=== PATIENT | female | born 1955 | race Caucasian/White ===

== ENCOUNTER 2016-12-24 01:15 | Inpatient (IN) | payer BC ==
[2016-12-24 01:37] LABS: Glucose,Whole Blood 92 mg/dL (75-99)
[2016-12-24] MEDS ORDERED: LORazepam 1 MG TAB PO STA (01:43)
--- NOTE | 2016-12-24 01:47 | ED ---
General Adult HPI - General Chief complaint: Neuro Symptoms/Deficit Stated complaint: Numbness in hands,feet,arms,lips Time Seen by Provider: 12/24/16 01:24 Source: patient, family, RN notes reviewed Mode of arrival: wheelchair Limitations: no limitations - History of Present Illness Initial comments: Patient is a pleasant 61-year-old female presenting to the emergency Department with paresthesias and weakness. Onset of symptoms was 2 days ago. Symptoms started in the feet however now are also in the hands. Patient is able to feel however states it feels different. Patient does feel weak all over. Patient states he is only able to walk about 5 steps before she is too weak to carry on. Patient did have recent cold symptoms that have resolved. Patient found her neighbor approximately one week ago. Patient admits to increased stress and anxiety regarding this. Patient also admits to not eating or drinking well since this time. Patient does question if she could be dehydrated. - Related Data Home Medications Medication Instructions Recorded Confirmed Unable To Assess [Unable to Assess] 12/24/16 12/24/16 Allergies Allergy/AdvReac Type Severity Reaction Status Date / Time Penicillins Allergy Unknown Verified 12/24/16 01:23 Childhood Review of Systems ROS Statement: Those systems with pertinent positive or pertinent negative responses have been documented in the HPI. ROS Other: All systems not noted in ROS Statement are negative. Constitutional: Denies: fever Eyes: Denies: eye pain ENT: Denies: ear pain, congestion (Resolved) Respiratory: Denies: cough (Resolved) Cardiovascular: Denies: chest pain Endocrine: Denies: fatigue Gastrointestinal: Denies: abdominal pain Genitourinary: Denies: dysuria Musculoskeletal: Denies: joint swelling, arthralgia, myalgia Skin: Denies: rash Neurological: Reports: weakness, paresthesias. Denies: headache, confusion Psychiatric: Reports: anxiety Past Medical History Past Medical History: No Reported History History of Any Multi-Drug Resistant Organisms: None Reported Past Surgical History: Tubal Ligation Past Psychological History: No Psychological Hx Reported Smoking Status: Never smoker Past Alcohol Use History: Rare Past Drug Use History: None Reported General Exam Limitations: no limitations General appearance: alert, in no apparent distress Head exam: Present: atraumatic Eye exam: Present: normal appearance, PERRL, EOMI. Absent: nystagmus ENT exam: Present: normal oropharynx Neck exam: Present: normal inspection Respiratory exam: Present: normal lung sounds bilaterally Cardiovascular Exam: Present: regular rate, normal rhythm GI/Abdominal exam: Present: soft. Absent: tenderness Extremities exam: Present: normal inspection. Absent: pedal edema, calf tenderness Neurological exam: Present: alert, oriented X3, CN II-XII intact Expanded Patient oriented to: Present: person, place, time Speech: Present: fluid speech Cranial nerves: EOM's Intact: Normal, Facial Sensation: Normal Sensory exam: Upper Extremity Light Touch: Normal (Patient states is able to sense however feels different), Lower Extremity Light Touch: Normal (Patient states is able to sense however feels different.) Motor strength exam: RUE: 4, LUE: 4, RLE: 4, LLE: 4 Eye Response: (4) open spontaneously Motor Response: (6) obeys commands Verbal Response: (5) oriented Psychiatric exam: Present: anxious Skin exam: Absent: rash Course Vital Signs 12/24/16 12/24/16 12/24/16 01:20 03:05 03:48 Temperature 98.0 F Pulse Rate 88 83 76 Respiratory 18 16 16 Rate Blood Pressure 146/78 155/87 146/65 O2 Sat by Pulse 100 97 97 Oximetry EKG Findings - EKG Comments: EKG Findings:: Normal sinus rhythm at 82. Normal intervals. Normal axis. Normal QRS. Nonspecific ST-T. Medical Decision Making - Medical Decision Making Patient with limited ability to ambulate. Case discussed in detail with Dr. Castro, who will admit for Dr. cage with neurology evaluation. Patient will likely need further evaluation for possible GuilliAN chanel or other neurological causes. Patient and family updated. - Lab Data Result diagrams: 12/24/16 01:40 12/24/16 01:40 Lab Results 12/24/16 12/24/16 12/24/16 Range/Units 01:33 01:40 01:40 WBC 8.4 (3.8-10.6) k/uL RBC 4.71 (3.80-5.40) m/uL Hgb 14.4 (11.4-16.0) gm/dL Hct 43.5 (34.0-46.0) % MCV 92.5 (80.0-100.0) fL MCH 30.6 (25.0-35.0) pg MCHC 33.1 (31.0-37.0) g/dL RDW 13.0 (11.5-15.5) % Plt Count 243 (150-450) k/uL Neutrophils % 77 % Lymphocytes % 15 % Monocytes % 5 % Eosinophils % 1 % Basophils % 1 % Neutrophils # 6.4 (1.3-7.7) k/uL Lymphocytes # 1.2 (1.0-4.8) k/uL Monocytes # 0.4 (0-1.0) k/uL Eosinophils # 0.1 (0-0.7) k/uL Basophils # 0.1 (0-0.2) k/uL PT (9.0-12.0) sec INR (<1.1) APTT (22.0-30.0) sec Sodium (137-145) mmol/L Potassium (3.5-5.1) mmol/L Chloride (98-107) mmol/L Carbon Dioxide (22-30) mmol/L Anion Gap mmol/L BUN (7-17) mg/dL Creatinine (0.52-1.04) mg/dL Est GFR (MDRD) Af Amer (>60 ml/min/1.73 sqM) Est GFR (MDRD) Non-Af (>60 ml/min/1.73 sqM) Glucose (74-99) mg/dL POC Glucose (mg/dL) 92 (75-99) mg/dL POC Glu Shipping Team Leader ID Marcelo Wilkins Calcium (8.4-10.2) mg/dL Magnesium (1.6-2.3) mg/dL Total Bilirubin (0.2-1.3) mg/dL AST (14-36) U/L ALT (9-52) U/L Alkaline Phosphatase (38-126) U/L Total Creatine Kinase 191 H (30-135) U/L CK-MB (CK-2) 2.0 (0.0-2.4) ng/mL CK-MB (CK-2) Rel Index 1.0 Troponin I <0.012 (0.000-0.034) ng/mL C-Reactive Protein (<10.0) mg/L Total Protein (6.3-8.2) g/dL Albumin (3.5-5.0) g/dL 12/24/16 12/24/16 Range/Units 01:40 01:40 WBC (3.8-10.6) k/uL RBC (3.80-5.40) m/uL Hgb (11.4-16.0) gm/dL Hct (34.0-46.0) % MCV (80.0-100.0) fL MCH (25.0-35.0) pg MCHC (31.0-37.0) g/dL RDW (11.5-15.5) % Plt Count (150-450) k/uL Neutrophils % % Lymphocytes % % Monocytes % % Eosinophils % % Basophils % % Neutrophils # (1.3-7.7) k/uL Lymphocytes # (1.0-4.8) k/uL Monocytes # (0-1.0) k/uL Eosinophils # (0-0.7) k/uL Basophils # (0-0.2) k/uL PT 10.8 (9.0-12.0) sec INR 1.1 (<1.1) APTT 22.3 (22.0-30.0) sec Sodium 141 (137-145) mmol/L Potassium 4.4 (3.5-5.1) mmol/L Chloride 105 (98-107) mmol/L Carbon Dioxide 26 (22-30) mmol/L Anion Gap 10 mmol/L BUN 13 (7-17) mg/dL Creatinine 0.50 L (0.52-1.04) mg/dL Est GFR (MDRD) Af Amer >60 (>60 ml/min/1.73 sqM) Est GFR (MDRD) Non-Af >60 (>60 ml/min/1.73 sqM) Glucose 111 H (74-99) mg/dL POC Glucose (mg/dL) (75-99) mg/dL POC Glu Shipping Team Leader ID Calcium 9.8 (8.4-10.2) mg/dL Magnesium 1.8 (1.6-2.3) mg/dL Total Bilirubin 0.6 (0.2-1.3) mg/dL AST 40 H (14-36) U/L ALT 47 (9-52) U/L Alkaline Phosphatase 51 (38-126) U/L Total Creatine Kinase (30-135) U/L CK-MB (CK-2) (0.0-2.4) ng/mL CK-MB (CK-2) Rel Index Troponin I (0.000-0.034) ng/mL C-Reactive Protein 6.6 (<10.0) mg/L Total Protein 7.9 (6.3-8.2) g/dL Albumin 4.5 (3.5-5.0) g/dL - Radiology Data Radiology results: report reviewed (Computed tomography scan of the brain shows no acute process.), image reviewed (Chest x-ray shows no acute process) Disposition Clinical Impression: Weakness Disposition: ADMITTED IP TO THIS HOSP
[2016-12-24] MEDS: SODIUM CHLORIDE 0.9% 1,000 ML IV STA ×2 (01:56→08:59)
[2016-12-24 01:58] LABS: Basophils # (A) 0.1 k/uL (0-0.2); Basophils % (A) 1 %; CH 31.2; CHCM 33.9; Eosinophils # (A) 0.1 k/uL (0-0.7); Eosinophils % (A) 1 %; HCT 43.5 % (34.0-46.0); HDW 2.27; HGB 14.4 gm/dL (11.4-16.0); Luc # (Auto) 0.23; Luc % (Auto) 3; Lymphocytes # (A) 1.2 k/uL (1.0-4.8); Lymphocytes % (A) 15 %; MCH 30.6 pg (25.0-35.0); MCHC 33.1 g/dL (31.0-37.0); MCV 92.5 fL (80.0-100.0); Mean Platelet Volume 7.9; Monocytes # (A) 0.4 k/uL (0-1.0); Monocytes % (A) 5 %; Neutrophils # (A) 6.4 k/uL (1.3-7.7); Neutrophils % (A) 77 %; RBC 4.71 m/uL (3.80-5.40); WBC 8.4 k/uL (3.8-10.6); WBC (Perox) 8.28
[2016-12-24 02:10] LABS: Anion Gap 10 mmol/L; C Reactive Protein 6.6 mg/L (<10.0); Calcium 9.8 mg/dL (8.4-10.2); Carbon Dioxide 26 mmol/L (22-30); Chloride 105 mmol/L (98-107); Glucose 111 mg/dL (74-99); Non-African American GFR(MDRD) >60 (>60 ml/min/1.73 sqM); Sodium 141 mmol/L (137-145); Total Bilirubin 0.6 mg/dL (0.2-1.3); Total Protein 7.9 g/dL (6.3-8.2)
[2016-12-24 02:14] LABS: INR 1.1 (<1.1); Partial Thromboplastin Time 22.3 sec (22.0-30.0); Prothrombin Time 10.8 sec (9.0-12.0)
[2016-12-24 02:15] LABS: Blood Urea Nitrogen 13 mg/dL (7-17); Magnesium 1.8 mg/dL (1.6-2.3); Potassium 4.4 mmol/L (3.5-5.1)
[2016-12-24 02:16] LABS: ALT 47 U/L (9-52); AST 40 U/L (14-36); Alkaline Phosphatase 51 U/L (38-126)
[2016-12-24 02:21] LABS: Creatine Kinase 191 U/L (30-135)
[2016-12-24 02:33] LABS: Troponin I <0.012 ng/mL (0.000-0.034)
--- NOTE | 2016-12-24 02:48 | CT ---
EXAM: CT Head Without Intravenous Contrast. CLINICAL HISTORY: Reason: Neuro Deficits TECHNIQUE: Axial computed tomography images of the head/brain without intravenous contrast. CTDI is 60.3 mGy and DLP is 1199.0 mGy-cm COMPARISON: No relevant prior studies available. FINDINGS: Brain: No evidence of acute cerebral infarction or hemorrhage. No abnormal extra-axial collections identified. Ventricles: Ventricles are of normal configuration without mass effect or midline shift. Bones/joints: Imaged sinuses are clear. No skull fracture identified. Soft tissues: Unremarkable. Sinuses: Unremarkable as visualized. No acute sinusitis. Mastoid air cells: Unremarkable as visualized. No mastoid effusion. Other findings: There are some scattered basal ganglion Stations bilaterally. IMPRESSION: No evidence of acute intracranial normality.
--- NOTE | 2016-12-24 02:52 | XR ---
EXAM: XR Chest, 2 Views. CLINICAL HISTORY: Reason: altered mental status TECHNIQUE: Frontal and lateral views of the chest. COMPARISON: None available FINDINGS: Lungs: Lungs are clear Pleural space: Unremarkable. No pneumothorax. Heart: Unremarkable. No cardiomegaly. Mediastinum: Unremarkable. Bones/joints: Unremarkable. IMPRESSION: No evidence of active chest disease.
[2016-12-24 03:08] VITALS: RESP 16
[2016-12-24 04:08] LABS: Appearance,Urine Clear (Clear); Bilirubin,Urine Negative (Negative); Glucose,Urine (UA) Negative (Negative); Ketones,Urine 1+ (Negative); Leukocyte Esterase,Urine Small (Negative); Mucus,Urine Moderate /hpf; Nitrite,Urine Negative (Negative); PH, Urine 5.5 (5.0-8.0); Particle Count 7424; Protein,Urine Trace (Negative); RBC,Urine 2 /hpf (0-5); Specific Gravity,Urine 1.016 (1.001-1.035); Squamous Epithelial Cell,Urine <1 /hpf (0-4); UA Billing (MACRO vs. MICRO) MICRO; Urobilinogen,Urine <2.0 mg/dL (<2.0); WBC,Urine 11 /hpf (0-5)
[2016-12-24] MEDS ORDERED: NALOXONE 0.4 MG/ML 1 ML VIAL IV PRN (04:09)
[2016-12-24] MEDS ORDERED: ALPRAZolam 0.25 MG TAB PO PRN (04:09)
[2016-12-24] MEDS ORDERED: SODIUM CHLORIDE 0.9% 1,000 ML IV SCH (04:15)
[2016-12-24 05:15] VITALS: BMI 26.1
[2016-12-24 05:41] VITALS: TEMP 98.4
[2016-12-24 10:06] VITALS: BP 156/75; PULSE 94
[2016-12-24] MEDS ORDERED: LORazepam 2 MG/ML SYRINGE IV STA (10:35)
--- NOTE | 2016-12-24 11:53 | MR ---
MRI CERVICAL SPINE: MRI THORACIC SPINE: CLINICAL HISTORY: Sudden onset neck pain and numbness in hands and feet. TECHNIQUE: Multiplanar, multisequence imaging of the cervical and thoracic spine are performed withou t IV contrast. COMPARISON: None. FINDINGS: C-SPINE: Sagittal images of the cervical spine show the craniocervical junction to appear within normal limits . The cervical and upper thoracic spinal cord is normal in course, caliber, and signal. Vertebral a lignment is anatomic. The vertebral body heights are normal. There is mild disc space narrowing C5-C 6 level otherwise disc space heights are fairly well-maintained. No large posterior disc herniations are seen on sagittal images. The bone marrow signal intensity is felt within normal limits. No signi ficant spurring is noted. Axial images show the C2-C3 and C3-C4 levels to appear within normal limits. Axial images at the C4-C5 level show uncovertebral facet degenerative changes bilaterally as well as left paracentral/foraminal spur disc complex, there is mild effacement of the anterolateral thecal sa c, there is moderate bilateral neural foraminal narrowing at this level identified. Axial images at C5-C6 level show uncovertebral facet degenerative changes bilaterally with broad-base d left paracentral disc protrusion effacing the anterior thecal sac, there is asymmetric moderate to severe left-sided neural foraminal narrowing with mild right-sided neural foraminal narrowing noted. Axial images at C6-C7 level are degraded by artifact but show central disc protrusion effacing anteri or thecal sac nearly up to ventral surface of spinal cord on axial image 25, bilateral neural foramin a are felt patent. Axial images at C7-T1 level are felt within normal limits. IMPRESSION: Multilevel degenerative changes in the mid to lower cervical spine as detailed above. T-SPINE: FINDINGS: Spinal cord shows normal course and signal as it courses the thoracic spine. There is AP diameter narrowing with suggestion of anterior effacement at the T5-T6 level on sagittal image 7, foc al arachnoid cyst at this level needs to BE considered. Length of lesion is estimated 1.8 cm beginnin g at inferior T5 endplate extending almost to inferior T6 endplate. No abnormal signal or cord edema is definitively seen. Vertebral body heights and alignment are satisfactory. There is mild to modera te multilevel anterior spurring. There is mild multilevel disc space narrowing. Posterior disc hernia tions are seen effacing anterior thecal sac at T1-T2, T5-T6 through T10-T11 levels on sagittal images . Note is made of a 1.9 cm round T1 low intense lesion in the liver on coronal image 2 suspect simple cyst. Review of the axial images shows less well visualized but anterior cord displacement centered at T5-T 6 disc space level on image 5. No obvious cord edema is seen. Axial images at T1-T2 level shows broad-based central disc protrusion mildly effacing anterior thecal sac on axial image 18. Axial images at T5-T6 level shows focal right paracentral disc protrusion mildly effacing anterior th ecal sac on axial image 6. Axial images at T6-T7 level show left paracentral disc protrusion effacing anterolateral thecal sac a nd axial image 3. Axial images at T7-T8 level show similar left paracentral disc protrusion mildly effacing anterolater al thecal sac. Axial images at T8-T9 level shows central disc protrusion mildly effacing anterior thecal sac on imag e 14. Axial images at T9-T10 level show left paracentral disc protrusion effacing anterolateral thecal sac and axial image 12. Axial images at and T10-T11 level shows left broad-based paracentral disc protrusion effacing anterol ateral thecal sac and causing mild to moderate left-sided neural foraminal narrowing on axial image 8 . There is 2.0 cm simple appearing thin-walled cyst confirmed posterior right hepatic lobe on axial raffi ge 6. IMPRESSION: Multilevel degenerative changes in thoracic spine as detailed above most prominent in mid to lower thoracic levels. 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 No cord edema is clearly evident. Neurosurgical consultation advised. Consider f urther investigation with contrast-enhanced MRI to exclude other etiologies.
--- NOTE | 2016-12-24 14:22 | P.HPIM ---
History of Present Illness H&P Date: 12/24/16 Chief Complaint: Bilateral upper and lower extremities weakness History and physical and discharge summary. This is a 61-year-old female one of Dr. Up with no previous medical history who presented to the emergency department at [facility] after 48 hours of sudden onset of the upper and lower extremities weakness and significant procedure not able to move her arm to scratch her face despite the fact that she is not having any mental status changes or any headache was no confusion, patient stated that about a week ago she developed to have an upper respiratory tract infection and she thought that she had the flu at that time. She treated it conservatively without going to the doctor and the suddenly she developed to have the symptoms described above. Patient stated that on Thursday she was painting and cleaning the house she worked extra hard and toward 3:00 in the afternoon developed to have a significant weakness in upper and lower extra views and also developed to have some pain in the right side of her neck patient was brought into the ER at [facility] and she had a computed tomography scan of the brain that did not show any evidence of acute of normalities, she also did have a chest x-ray that was negative her laboratory evaluation were inconclusive and the patient was supposed to be seen in consultation by neurology the concern was whether or not the patient developed to have significant 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 I had a conversation with the patient and her and they're both interested in transferring the patient to a tertiary care center either [facility] versus [facility] I've contacted [facility] and patient was accepted to the neurology floor or general medical floor and she will be transferred as soon as possible for further evaluation and recommendation. Review of Systems Constitutional: Reports fatigue, Reports malaise, Reports weakness, Denies chronic headaches, Denies chronic pain, Denies weight gain, Denies weight loss Eyes: denies blurred vision, denies bulging eye, denies decreased vision, denies diplopia Ears: deny: decreased hearing Ears, nose, mouth and throat: Denies dysphagia, Denies epistaxis, Denies neck lump, Denies nose pain, Denies sore throat, Denies vertigo Cardiovascular: Denies chest pain, Denies decreased exercise tolerance, Denies dyspnea on exertion, Denies edema, Denies high blood pressure, Denies phlebitis , Denies rapid heart beat, Denies shortness of breath, Denies syncope Respiratory: Denies congestion, Denies cough, Denies cough with sputum, Denies home oxygen, Denies sleep apnea, Denies snoring, Denies wheezing Gastrointestinal: Denies abdominal pain, Denies bloating, Denies BRBPR, Denies excessive gas, Denies heartburn, Denies melena, Denies nausea, Denies vomiting Genitourinary: Denies dysuria, Denies hematuria Musculoskeletal: Reports gait dysfunction, Reports leg numbness/tingling, Reports muscle weakness, Reports neck pain, Reports neck stiffness, Denies myalgias Musculoskeletal: absent: ankle pain, ankle stiffness, ankle swelling, as per HPI , elbow pain, elbow stiffness, elbow swelling, foot pain, foot stiffness, foot swelling, hand pain, hand stiffness, hand swelling, hip pain, hip stiffness, hip swelling, knee pain, knee stiffness, knee swelling, shoulder pain, shoulder stiffness, shoulder swelling, wrist pain, wrist stiffness, wrist swelling Integumentary: Denies pruritus, Denies rash Neurological: Reports gait dysfunction, Reports lack of coordination, Reports motor disturbance, Reports paralysis, Reports paresthesias, Reports sensory deficit, Reports weakness, Denies burning pain, Denies change in mentation, Denies change in speech, Denies confusion, Denies convulsions, Denies double vision, Denies headaches, Denies hearing difficulties, Denies spasticity, Denies syncope, Denies visual changes Psychiatric: Reports anxiety, Denies depression Endocrine: Reports as per HPI Past Medical History Past Medical History: No Reported History History of Any Multi-Drug Resistant Organisms: None Reported Past Surgical History: Tubal Ligation Past Anesthesia/Blood Transfusion Reactions: Postoperative Nausea & Vomiting ( PONV) Past Psychological History: No Psychological Hx Reported Smoking Status: Never smoker Past Alcohol Use History: Rare Past Drug Use History: None Reported - Past Family History Father Family Medical History: Coronary Artery Disease (CAD), CVA/TIA Additional Family Medical History / Comment(s): pt states her father of stroke. Mother Additional Family Medical History / Comment(s): glaucoma. Brother(s) Family Medical History: AFIB Medications and Allergies Home Medications Medication Instructions Recorded Confirmed Type Ascorbic Acid [Vitamin C] 1,000 mg PO BID 12/24/16 12/24/16 History Lactobacillus Acidophilus 1 tab PO BID 12/24/16 12/24/16 History [Acidophilus] Allergies Allergy/AdvReac Type Severity Reaction Status Date / Time Penicillins Allergy Unknown Verified 12/24/16 08:02 Childhood Physical Exam Vitals: Vital Signs Temp Pulse Pulse Resp BP BP Pulse Ox 12/24/16 08:00 94 16 12/24/16 07:00 98.4 F 94 16 156/75 96 12/24/16 04:55 98.4 F 85 16 156/74 97 12/24/16 04:36 98.0 F 89 16 154/80 96 Intake and Output 12/23/16 12/24/16 12/24/16 22:59 06:59 14:59 Intake Total 50 240 Balance 50 240 Intake: Oral 50 240 Other: Voiding Method Toilet Toilet Weight 78.018 kg - Constitutional General appearance: no acute distress - EENT Eyes: anicteric sclerae, EOMI, PERRLA, no ptosis, no scleral icterus, normal appearance ENT: hearing grossly normal, NA/AT, normal oropharynx, no thrush Ears: bilateral: normal - Neck Neck: no lymphadenopathy, normal ROM, no rigidity, no stridor, no thyromegaly Carotids: bilateral: upstroke normal Thyroid: bilateral: normal size - Respiratory Respiratory: bilateral: CTA, negative: diminished, dullness, rales, rhonchi, wheezing, prolonged expiration, prolonged inspiration - Cardiovascular Rhythm: regular Heart sounds: normal: S1, S2 Abnormal Heart Sounds: no systolic murmur, no diastolic murmur, no rub, no S3 Gallop, no S4 Gallop, no click - Gastrointestinal General gastrointestinal: normal bowel sounds, soft, no splenomegaly, no tenderness, no umbilical hernia, no ventral hernia - Integumentary Integumentary: normal, normal turgor - Neurologic Neurologic: CNII-XII intact - Musculoskeletal Musculoskeletal: no gait normal, no strength equal bilaterally, right sided weakness, left sided weakness - Psychiatric Psychiatric: A&O x's 3, appropriate affect, intact judgment & insight Results CBC & Chem 7: 12/24/16 01:40 12/24/16 01:40 Thrombosis Risk Factor Assmnt - DVT/VTE Prophylaxis DVT/VTE Prophylaxis: Pharmacologic Prophylaxis ordered, Mechanical Prophylaxis ordered - Choose All That Apply Each Risk Factor Represents 2 Points: Age 61-74 years Thrombosis Risk Factor Assessment Total Risk Factor Score: 2 Thrombosis Risk Factor Assessment Level: Low Risk Assessment and Plan Plan: Assessment and plan: 1. 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 for further evaluation she will need to be started on the high-dose steroids and possible IVIG. 2. Recent upper respiratory tract infection. Resolved at this point in time. 3. Degenerative disc disease of the thoracic spine as well as the cervical spine. Patient may need to be evaluated by neurosurgery. 4. DVT prophylaxis. Heparin 5000 units subcutaneously every 12 hours 5. GI prophylaxis. Continue PPI. 6. Patient is full code. 7. Estimate length of stay 2 midnights. 8. Patient is medically stable to be transferred to [facility]. 9. I've contacted the transfer team and the patient got accepted to [facility] neurology floor with neurology consults and possible neurosurgery consult.
== END 2016-12-24 14:40 | disposition short-term general hospital (02) | DRG 53 ==
LOC: EC 01:15 → 5MS5E 04:09
PROVIDERS: ADMIT Internal Medicine; ATTEND Internal Medicine
DX: G82.50 Quadriplegia, unspecified (principal); M51.24 Other intervertebral disc displacement, thoracic region; M50.222 Other cervical disc displacement at C5-C6 level; F41.9 Anxiety disorder, unspecified; R20.9 Unspecified disturbances of skin sensation; R53.1 Weakness; R26.2 Difficulty in walking, not elsewhere classified; Z82.3 Family history of stroke; Z88.0 Allergy status to penicillin; Z82.49 Family history of ischemic heart disease and other diseases of the circulatory system; Z86.19 Personal history of other infectious and parasitic diseases; Z87.09 Personal history of other diseases of the respiratory system; Z98.51 Tubal ligation status; Z73.3 Stress, not elsewhere classified
CPT/HCPCS: 36415; 70450; 71020; 72141; 72146; 80053; 81001; 82550; 82553; 83735; 84484; 85025; 85610; 85730; 86140; 93005; 96360; 96361; 99285

== ENCOUNTER 2017-04-17 10:53 | Day surgery (SDC) | payer BC ==
[2017-04-15 14:48] VITALS: BMI 21.4
[~2017-04-17 10:53] MED LIST: LACTATED RINGERS 1,000 ML IV SCH; LIDOCAINE 1% 20 ML VIAL (10MG/ML) FOR IV START INTRADERMA PRN
[2017-04-17 11:31] VITALS: BP 123/79; PULSE 83; RESP 16; TEMP 98.4
--- NOTE | 2017-04-17 13:34 | P.PCN ---
Date of Procedure: 04/17/17 Preoperative Diagnosis: Postoperative Diagnosis: Procedure(s) Performed: Patient is a 61-year-old pleasant white female scheduled for PEG tube removal today. 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 She has not been using her PEG tube for the last 2 weeks' duration. Oral intake has been normal. Procedure performed: PEG tube removal Preoperative diagnosis: History of recurrent pharyngeal dysphagia status post PEG tube placement 3 months ago Procedure: After informed consent was obtained the patient was brought into the endoscopy unit. The PEG tube was seen. The balloon was deflated and the PEG tube pulled out without any difficulty and the patient tolerated the procedure well. Recommendations: Patient admitted discharged home today and resume her normal oral intake. She was advised to follow up in office if she has any problems. Implants: Indications for Procedure: Operative Findings: Description of Procedure:
--- NOTE | 2017-04-22 08:39 | CDI ---
Documentation Clarification OP Dear Dr. Roy, Please provide clarification regarding the route used to remove the PEG tube. Was an EGD performed? PLEASE RESPOND TO THIS QUERY BY DICTATING AN ADDENDUM TO YOUR PROCEDURE NOTE. Thank you for your assistance, LEONORA Grissom If you have any questions, please contact [employer], Chrystal Chris at [phone] [facility]
== END 2017-04-17 13:49 | disposition home or self-care (01) ==
LOC: ORWHC2ENDO 10:53
PROVIDERS: ATTEND Internal Medicine Gastroenterology
DX: G61.0 Guillain-Barre syndrome (principal)

== ENCOUNTER → 2018-09-22 | Outpatient (CLI) | payer MEDICARE ==
--- NOTE | 2018-09-22 15:44 | US ---
EXAMINATION TYPE: US carotid duplex BILAT DATE OF EXAM: 09/22/2018 COMPARISON: NONE CLINICAL HISTORY: I65.23 Occlusion and stenosis of bilateral carotid. No HTN, high cholesterol, No hx of TIA EXAM MEASUREMENTS: RIGHT: Peak Systolic Velocity (PSV) cm/sec ----- Right CCA: 84.1 ----- Right ICA: 96.8 ----- Right ECA: 84.7 ICA/CCA ratio: 1.2 RIGHT: End Diastole cm/sec ----- Right CCA: 36.1 ----- Right ICA: 33.8 ----- Right ECA: 20.8 LEFT: Peak Systolic Velocity (PSV) cm/sec ----- Left CCA: 86.7 ----- Left ICA: 86.7 ----- Left ECA: 69.8 ICA/CCA ratio: 1.0 LEFT: End Diastole cm/sec ----- Left CCA: 31.0 ----- Left ICA: 31.0 ----- Left ECA: 17.4 VERTEBRALS (direction of flow): Right Vertebral: Antegrade Left Vertebral: Antegrade Rhythm: Normal No plaque, significant stenosis, elevated velocities present. Mild Intimal thickening is evident bilaterally. IMPRESSION: 1. No significant flow-limiting stenosis. 2. Mild thickening present bilaterally Criteria for Assigning % of Stenosis / Diameter reduction (Estimation based on the indirect measurements of the internal carotid artery velocities (ICA PSV). 1. Normal (no stenosis)=ICA PSV < 125 cm/s: ratio < 2.0: ICA EDV<40 cm/s. 2. Less than 50% stenosis=ICA PSV < 125 cm/s: ratio < 2.0: ICA EDV<40 cm/s. 3. 50 to 69% stenosis=ICA PSV of 125 to 230 cm/s: ration 2.0 ? 4.0: ICA EDV 40-100 cm/s. 4. Greater than 70% stenosis to near occlusion= ICA PSV > 230 cm/s: ratio > 4.0: ICA EDV > 100 cm/s. 5. Near occlusion= ICA PSV velocities may be low or undetectable: variable ratio and ICA EDV. 6. Total occlusion=unable to detect flow.
== END | disposition home or self-care (01) ==
LOC: RADUSWWP 15:00
PROVIDERS: ATTEND Internal Medicine
DX: I77.89 Other specified disorders of arteries and arterioles (principal)
CPT/HCPCS: 93880

== ENCOUNTER → 2018-10-18 | Outpatient (CLI) | payer MEDICARE ==
[2018-10-18 08:07] LABS: Basophils % (A) 1 %; Eosinophils # (A) 0.1 k/uL (0-0.7); Eosinophils % (A) 2 %; HCT 43.8 % (34.0-46.0); HGB 13.8 gm/dL (11.4-16.0); Lymphocytes # (A) 1.3 k/uL (1.0-4.8); Lymphocytes % (A) 31 %; MCH 29.7 pg (25.0-35.0); MCHC 31.6 g/dL (31.0-37.0); MCV 94.1 fL (80.0-100.0); Mean Platelet Volume 6.9; Monocytes # (A) 0.3 k/uL (0-1.0); Monocytes % (A) 6 %; Neutrophils # (A) 2.3 k/uL (1.3-7.7); Neutrophils % (A) 57 %; Platelet Count 257 k/uL (150-450); RBC 4.65 m/uL (3.80-5.40); RDW 12.8 % (11.5-15.5)
[2018-10-18 08:25] LABS: ALT 47 U/L (9-52); AST 35 U/L (14-36); Albumin 4.7 g/dL (3.5-5.0); Alkaline Phosphatase 34 U/L (38-126); Anion Gap 5 mmol/L; Blood Urea Nitrogen 24 mg/dL (7-17); Carbon Dioxide 31 mmol/L (22-30); Chloride 105 mmol/L (98-107); Cholesterol 297 mg/dL (<200); Creatine Kinase 339 U/L (30-135); Glucose 90 mg/dL (74-99); Magnesium 1.9 mg/dL (1.6-2.3); Potassium 4.6 mmol/L (3.5-5.1); Sodium 141 mmol/L (137-145); Total Bilirubin 0.4 mg/dL (0.2-1.3); Total Protein 7.6 g/dL (6.3-8.2); Triglycerides 40 mg/dL (<150); Uric Acid 4.3 mg/dL (3.7-7.4)
[2018-10-18 08:32] LABS: LDL Cholesterol,Calculated 131 mg/dL (0-99); T4, Free (Free Thyroxine) 0.86 ng/dL (0.78-2.19)
[2018-10-18 08:41] LABS: Appearance,Urine Clear (Clear); Bilirubin,Urine Negative (Negative); Blood,Urine Negative (Negative); Color,Urine Yellow; Glucose,Urine (UA) Negative (Negative); Ketones,Urine Negative (Negative); Leukocyte Esterase,Urine Small (Negative); Mucus,Urine Few /hpf; Nitrite,Urine Negative (Negative); Protein,Urine Trace (Negative); RBC,Urine <1 /hpf (0-5); Specific Gravity,Urine 1.021 (1.001-1.035); Squamous Epithelial Cell,Urine <1 /hpf (0-4); Urobilinogen,Urine <2.0 mg/dL (<2.0); WBC,Urine 4 /hpf (0-5)
[2018-10-18 08:49] LABS: HDL Cholesterol 158 mg/dL (40-60)
[2018-10-18 22:42] LABS: Hemoglobin A1C 5.5 % (4.0-6.0)
--- NOTE | 2018-10-24 10:10 | MM ---
Reason for exam: screening (asymptomatic). Last mammogram was performed 1 year and 1 month ago. History: Patient is postmenopausal. MG Screening Mammo w CAD Bilateral CC and MLO view(s) were taken. Prior study comparison: September 29, 2017, bilateral MG screening mammo w CAD. May 22, 2016, bilateral MG screening mammo w CAD. The breast tissue is heterogeneously dense. This may lower the sensitivity of mammography. No significant changes when compared with prior studies. ASSESSMENT: Benign, BI-RAD 2 RECOMMENDATION: Routine screening mammogram of both breasts in 1 year.
== END | disposition home or self-care (01) ==
LOC: RADMAMWWP 06:44
PROVIDERS: ATTEND Internal Medicine
DX: Z12.31 Encounter for screening mammogram for malignant neoplasm of breast (principal); G61.81 Chronic inflammatory demyelinating polyneuritis; K21.9 Gastro-esophageal reflux disease without esophagitis; E78.00 Pure hypercholesterolemia, unspecified; R73.09 Other abnormal glucose
CPT/HCPCS: 77067; 80053; 80061; 81001; 82306; 82550; 83036; 83735; 84439; 84443; 84550; 85025

== ENCOUNTER → 2019-05-11 | Outpatient (CLI) | payer MEDICARE ==
[2019-05-12 11:13] LABS: Anti-Endomysial IgA Antibody <1:10 Titer (<1:10)
[2019-05-12 11:33] LABS: Cow's Milk IgE Class CLASS 0; Egg White IgE <0.35 kU/L (<0.35); Peanut IgE <0.35 kU/L (<0.35); Potato IgE <0.35 kU/L (<0.35); Potato IgE Class CLASS 0; Soybean IgE <0.35 kU/L (<0.35); Yeast Bakers/Brew IgE <0.35 kU/L (<0.35); Yeast Bakers/Brew IgE Class CLASS 0
== END | disposition home or self-care (01) ==
LOC: LABWHC1 09:42
PROVIDERS: ATTEND Otolaryngology
DX: J30.89 Other allergic rhinitis (principal); R11.0 Nausea; R10.9 Unspecified abdominal pain
CPT/HCPCS: 36415; 82785; 86003; 86255

== ENCOUNTER → 2019-10-28 | Outpatient (CLI) | payer MEDICARE ==
[2019-10-28 07:35] LABS: Basophils % (A) 1 %; Eosinophils # (A) 0.1 k/uL (0-0.7); Eosinophils % (A) 3 %; HCT 43.4 % (34.0-46.0); HGB 13.8 gm/dL (11.4-16.0); Lymphocytes # (A) 1.5 k/uL (1.0-4.8); Lymphocytes % (A) 35 %; MCH 30.2 pg (25.0-35.0); MCHC 31.8 g/dL (31.0-37.0); MCV 95.2 fL (80.0-100.0); Mean Platelet Volume 7.6; Monocytes # (A) 0.3 k/uL (0-1.0); Monocytes % (A) 8 %; Neutrophils # (A) 2.1 k/uL (1.3-7.7); Neutrophils % (A) 51 %; Platelet Count 208 k/uL (150-450); RBC 4.55 m/uL (3.80-5.40); RDW 12.7 % (11.5-15.5); WBC 4.2 k/uL (3.8-10.6)
[2019-10-28 12:17] LABS: Albumin 4.5 g/dL (3.80-4.90); Albumin/Globulin Ratio 2.05 (1.60-3.17); Anion Gap 7.9 mmol/L (4.00-12.00); Calcium 9.4 mg/dL (8.7-10.3); Carbon Dioxide 31.1 mmol/L (21.6-31.8); Chol/HDL Ratio 2.26; Globulin 2.2 g/dL (1.6-3.3); Non-African American GFR(CKD) 76.8 (60.0-200.0); Potassium 4.1 mmol/L (3.5-5.5); Total Bilirubin 0.4 mg/dL (0.3-1.2); Total Protein 6.7 g/dL (6.2-8.2)
[2019-10-28 12:57] LABS: Hemoglobin A1C 5.4 % (4.0-6.0)
== END | disposition home or self-care (01) ==
LOC: LABWHC1 06:30
PROVIDERS: ATTEND Internal Medicine
DX: K21.9 Gastro-esophageal reflux disease without esophagitis (principal); E78.2 Mixed hyperlipidemia; G61.81 Chronic inflammatory demyelinating polyneuritis
CPT/HCPCS: 36415; 80053; 80061; 83036; 84443; 85025

== ENCOUNTER → 2020-07-24 | Outpatient (CLI) | payer MEDICARE ==
--- NOTE | 2020-07-24 11:14 | BD ---
EXAMINATION TYPE: Axial Bone Density DATE OF EXAM: 07/24/2020 COMPARISON: NONE CLINICAL HISTORY: Height: 5 FT 8 IN Weight: 165 FRAX RISK QUESTIONS: Alcohol (3 or more units per day): NO Family History (Parent hip fracture): YES Glucocorticoids (More than 3mos): NO (Ex: prednisone, prednisolone, methylprednisolone, dexamethasone, and hydrocortisone). History of Fracture in Adulthood: NO Secondary Osteoporosis: 1. Type 1 Diabetes: NO 2. Hyperthyroidism: NO 3. Menopause before 45: NO 4. Malnutrition: NO 5. Chronic liver disease: NO Rheumatoid Arthritis: NO Current Tobacco Use: NO RISK FACTORS HISTORY OF: Family History of Osteoporosis: YES Active: YES Postmenopausal woman: AGE 51 MEDICATIONS: Additional Medications: NONE Additional History: RECENT HISTORY OF GUILLAIN BARRE EXAM MEASUREMENTS: Bone mineral densitometry was performed using the [email or web address] System. Bone mineral density as measured about the Lumbar spine is: ----- L1-L4(G/cm2): 1.127 T Score Values are as follows: ----- L2: -1.0 ----- L3: -0.1 ----- L4: -0.3 ----- L1-L4: -0.4 Bone mineral density has: INCREASED 3.1 % since study of: 2017 Bone mineral density about the R hip (g/cm2): 0.972 Bone mineral density about the L hip (g/cm2): 0.923 T Score values are as follows: -----R Neck: -0.5 -----L Neck: -0.8 -----R Total: -0.3 -----L Total: -0.3 Bone mineral density has: INCREASED 2.1 % since study of: 2017 IMPRESSION: No evidence for osteoporosis or osteopenia. NOTE: T-SCORE=SD OF THE YOUNG ADULT MEAN.
--- NOTE | 2020-07-25 11:40 | MM ---
Reason for exam: screening (asymptomatic). Last mammogram was performed 1 year and 9 months ago. History: Patient is postmenopausal. Physical Findings: A clinical breast exam by your physician is recommended on an annual basis and results should be correlated with mammographic findings. MG 3D Screening Mammo W/Cad Bilateral CC and MLO view(s) were taken. Prior study comparison: October 18, 2018, bilateral MG screening mammo w CAD. September 29, 2017, bilateral MG screening mammo w CAD. The breast tissue is heterogeneously dense. This may lower the sensitivity of mammography. There is no discrete abnormality. No significant changes when compared with prior studies. ASSESSMENT: Negative, BI-RAD 1 RECOMMENDATION: Routine screening mammogram of both breasts in 1 year.
== END | disposition home or self-care (01) ==
LOC: RADMAMWWP 09:36
PROVIDERS: ATTEND Internal Medicine
DX: Z12.31 Encounter for screening mammogram for malignant neoplasm of breast (principal); M81.0 Age-related osteoporosis without current pathological fracture
CPT/HCPCS: 77063; 77067; 77080

== ENCOUNTER → 2021-02-15 | Outpatient (CLI) | payer MEDICARE ==
--- NOTE | 2021-02-15 11:28 | NM ---
EXAMINATION TYPE: NM stress cardiolite complete DATE OF EXAM: 02/15/2021 COMPARISON: NONE HISTORY: Atherosclerotic heart disease. History of hypercholesteremia. TECHNIQUE: After the intravenous administration of 10.1 mCi Tc 99m Sestamibi - Rest images obtained 45 minutes post injection. The patient exercised using a DELMAR protocol and 1 minute prior to peak exercise was injected with 26.2 mCi Tc 99m Sestamibi - Stress images obtained 30 minutes post injecti on. FINDINGS: Targeted heart rate was achieved during performance of the study. Review of stress and rest SPECT raffi ges demonstrates no distinct perfusion abnormality. Gated analysis shows normal wall motion with an estimated left ventricular ejection fraction of 65 %. IMPRESSION: No scintigraphic evidence for reversible ischemia
--- NOTE | 2021-02-15 12:14 | P.STRESS ---
- Stress Test Note Stress Test Results/Findings: Exam Performed: NM stress cardiolite complete Exam Date: 02/15/21 Reason for Exam: Hyperlipidemia Height: 5 ft 9 in Weight: 73.482 kg Protocol: Moody Stage: 2 Duration of Exercise: 5:30 Resting Heart Rate: 75 Resting Blood Pressure: 132/78 Maximum Achieved Heart Rate: 162 Maximum Achieved Blood Pressure: 197/93 85% PMHR: 130 100% PMHR: 153 METS: 7.1 Technologist Comment: Stress Test Results/Findings: Patient underwent exercise Cardiolite stress EKG with a Moody protocol treadmill stress test. Patient exercised into Stage 2 for a total of 5 minutes 30 seconds reaching a total of 7.1 METS. Patient's maximum heart rate was 162 which represented 100% % age-predicted maximum heart rate. Stress EKG findings: At baseline patient's EKG showed normal sinus rhythm, normal axis, nonspecific 0.[address] depressions in the inferior and lateral leads. At peak exercise, EKG showed nonspecific accentuation up to [address] depressions in the inferior and lateral leads. Conclusions: 1. Nondiagnostoc stress EKG secondary to baseline EKG abnormalities. 2. Nuclear portion to be reported separately. 3. Fair exercise capacity.
--- NOTE | 2021-02-18 11:48 | EST ---
Stress Test Results/Findings: Exam Performed: NC stress cardiolite complete Exam Date: 02/15/21 Reason for Exam: Hyperlipidemia Height: 5 ft 9 in Weight: 73.482 kg Protocol: Moody Stage: 2 Duration of Exercise: 5:30 Resting Heart Rate: 75 Resting Blood Pressure: 132/78 Maximum Achieved Heart Rate: 162 Maximum Achieved Blood Pressure: 197/93 85% PMHR: 130 100% PMHR: 153 METS: 7.1 Technologist Comment: Stress Test Results/Findings: Patient underwent exercise Cardiolite stress EKG with a Moody protocol treadmill stress test. Patient exercised into Stage 2 for a total of 5 minutes 30 seconds reaching a total of 7.1 METS. Patient's maximum heart rate was 162 which represented 100% % age-predicted maximum heart rate. Stress EKG findings: At baseline patient's EKG showed normal sinus rhythm, normal axis, nonspecific 0.[address] depressions in the inferior and lateral leads. At peak exercise, EKG showed nonspecific accentuation up to [address] depressions in the inferior and lateral leads. Conclusions: 1. Nondiagnostoc stress EKG secondary to baseline EKG abnormalities. 2. Nuclear portion to be reported separately. 3. Fair exercise capacity. MTDD
== END | disposition home or self-care (01) ==
LOC: RADNMMAIN 07:48
PROVIDERS: ATTEND Internal Medicine
DX: R94.31 Abnormal electrocardiogram [ECG] [EKG] (principal)
CPT/HCPCS: 93017; 78452; A9500

== ENCOUNTER → 2021-08-06 | Outpatient (CLI) | payer MEDICARE ==
--- NOTE | 2021-08-06 15:36 | XR ---
EXAMINATION TYPE: XR shoulder complete RT DATE OF EXAM: 08/06/2021 CLINICAL HISTORY: Right shoulder soreness and pain. TECHNIQUE: Three views of the right shoulder are obtained. COMPARISON: None. FINDINGS: There is no acute fracture/dislocation evident in the right shoulder. Moderate narrowing a cromioclavicular joint with mild spurring. Distal acromion morphology unremarkable. Glenohumeral join t maintained. Negative osseous structures demineralized. The visualized ribs are intact . IMPRESSION: As above.
== END | disposition home or self-care (01) ==
LOC: RADXRMAIN 15:11
PROVIDERS: ATTEND Internal Medicine
DX: M25.511 Pain in right shoulder (principal)

== ENCOUNTER → 2021-12-18 | Outpatient (CLI) | payer MEDICARE ==
--- NOTE | 2021-12-19 08:00 | ECHOF ---
Referral Reason:I65.23 MEASUREMENTS -------- HEIGHT: 175.3 cm WEIGHT: 74.4 kg BP: RVIDd: 3.2 cm (< 3.3) IVSd: 0.9 cm (0.6 - 1.1) LVIDd: 4.6 cm (3.9 - 5.3) LVPWd: 0.8 cm (0.6 - 1.1) IVSs: 1.2 cm LVIDs: 3.7 cm LVPWs: 1.5 cm LA Diam: 3.2 cm (2.7 - 3.8) LAESV Index (A-L): 30.87 ml/m Ao Diam: 2.5 cm (2.0 - 3.7) AV Cusp: 2.0 cm (1.5 - 2.6) LA Diam: 3.2 cm (2.7 - 3.8) MV EXCURSION: 23.102 mm (> 18.000) MV EF SLOPE: 117 mm/s (70 - 150) EPSS: 0.5 cm MV E Benitez: 0.53 m/s MV DecT: 193 ms MV A Benitez: 0.58 m/s MV E/A Ratio: 0.93 RAP: 5.00 mmHg RVSP: 22.27 mmHg FINDINGS -------- Sinus rhythm. This was a technically good study. LV size, wall thickness and systolic function are normal, with an EF greater than 55%. The left ab tricular size is normal. The right ventricle is normal in size. LA is midly dilated 29-33ml/m2. The right atrial size is normal. The aortic valve is trileaflet, and appears structurally normal. No aortic stenosis or regurgitation. mild calcification. Mild mitral regurgitation is present. Mild tricuspid regurgitation present. Right ventricular systolic pressure is normal at < 35 mmHg. There is no pulmonic regurgitation present. There is no pericardial effusion. CONCLUSIONS -------- 1. LV size, wall thickness and systolic function are normal, with an EF greater than 55%. 2. The left ventricular size is normal. 3. The right ventricle is normal in size. 4. LA is midly dilated 29-33ml/m2. 5. The right atrial size is normal. 6. The aortic valve is trileaflet, and appears structurally normal. No aortic stenosis or regurgitati on. 7. Mild mitral regurgitation is present. 8. Mild tricuspid regurgitation present. 9. There is no pericardial effusion. FIELD CROP II FARMWORKER: Dorothy Vega RDCS
== END | disposition home or self-care (01) ==
LOC: RADECHMAIN 13:56
PROVIDERS: ATTEND Internal Medicine
DX: I65.23 Occlusion and stenosis of bilateral carotid arteries (principal); R60.0 Localized edema
CPT/HCPCS: 93306

== ENCOUNTER → 2021-12-26 | Outpatient (CLI) | payer MEDICARE ==
--- NOTE | 2021-12-26 08:03 | US ---
EXAMINATION TYPE: US kidneys/renal and bladder DATE OF EXAM: 12/26/2021 COMPARISON: NONE CLINICAL HISTORY: I65.23 Occlusion and stenosis of bilateral caroti. bilateral leg edema EXAM MEASUREMENTS: Right Kidney: 12.0 x 5.6 x 5.1 cm Left Kidney: 11.1 x 4.6 x 5.7 cm Right Kidney: No hydronephrosis or masses seen Left Kidney: No hydronephrosis or masses seen Bladder: wnl Bilateral Jets seen: yes There is no evidence for hydronephrosis at this point in time. No nephrolithiasis is seen. No deep s are identified. The urinary bladder is anechoic. Bilateral ureteral jets are seen. IMPRESSION: No discrete abnormality is visualized at this time.
--- NOTE | 2021-12-26 08:05 | US ---
EXAMINATION TYPE: US carotid duplex BILAT DATE OF EXAM: 12/26/2021 COMPARISON: NONE CLINICAL HISTORY: I65.23 Occlusion and stenosis of bilateral caroti. family history of arterial disea se, no h/o stroke for patient, no symptoms, bilat leg edema EXAM MEASUREMENTS: RIGHT: Peak Systolic Velocity (PSV) cm/sec ----- Right CCA: 61.6 ----- Right ICA: 83.1 ----- Right ECA: 63.1 ICA/CCA ratio: 1.3 RIGHT: End Diastole cm/sec ----- Right CCA: 17.5 ----- Right ICA: 27.0 ----- Right ECA: 10.4 LEFT: Peak Systolic Velocity (PSV) cm/sec ----- Left CCA: 62.1 ----- Left ICA: 60.3 ----- Left ECA: 48.0 ICA/CCA ratio: 1.0 LEFT: End Diastole cm/sec ----- Left CCA: 16.6 ----- Left ICA: 24.0 ----- Left ECA: 8.6 VERTEBRALS (direction of flow): Right Vertebral: Antegrade Left Vertebral: Antegrade Rhythm: Normal Mild homogeneous plaque with no stenosis seen IMPRESSION: No evidence for hemodynamically significant stenosis. Criteria for Assigning % of Stenosis / Diameter reduction (Estimation based on the indirect measurements of the internal carotid artery velocities (ICA PSV). 1. Normal (no stenosis)=ICA PSV < 125 cm/s: ratio < 2.0: ICA EDV<40 cm/s. 2. Less than 50% stenosis=ICA PSV < 125 cm/s: ratio < 2.0: ICA EDV<40 cm/s. 3. 50 to 69% stenosis=ICA PSV of 125 to 230 cm/s: ration 2.0 ? 4.0: ICA EDV 40-100 cm/s. 4. Greater than 70% stenosis to near occlusion= ICA PSV > 230 cm/s: ratio > 4.0: ICA EDV > 100 cm/s. 5. Near occlusion= ICA PSV velocities may be low or undetectable: variable ratio and ICA EDV. 6. Total occlusion=unable to detect flow.
== END | disposition home or self-care (01) ==
LOC: RADUSWWP 07:02
PROVIDERS: ATTEND Internal Medicine
DX: I65.23 Occlusion and stenosis of bilateral carotid arteries (principal); R60.0 Localized edema
CPT/HCPCS: 76770; 93880

== ENCOUNTER → 2022-07-11 | Outpatient (CLI) | payer MEDICARE ==
[2022-07-11 16:39] LABS: African American GFR (CKD) >90 (>60 ml/min/1.73 sqM); Blood Urea Nitrogen 17 mg/dL (7-17); Non-African American GFR(CKD) >90 (>60 ml/min/1.73 sqM)
--- NOTE | 2022-07-12 09:02 | CT ---
EXAMINATION TYPE: CT abdomen w con CT DLP: 1083 mGycm, Automated exposure control for dose reduction was used. DATE OF EXAM: 07/11/2022 5:09 PM COMPARISON: none CLINICAL INDICATION:Female, 66 years old with history of R10.13 EPIGASTRIC PAIN; Pt is having left si de flank pain. 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 Pt is no longer paralyzed . TECHNIQUE: Axial CT of the abdomen and pelvis. Sagittal and coronal reformats were created on a [employer] workstation. Contrast used:100cc mL of Isovue 300 with IV Contrast, Oral contrast used: with Oral Contrast FINDINGS: LOWER CHEST: Bilateral fat-containing Bochdalek hernias. ABDOMEN LIVER: Hepatic cysts measuring up to 2.6 cm. GALLBLADDER AND BILE DUCTS: Unremarkable. PANCREAS: Unremarkable. SPLEEN: Unremarkable. ADRENAL GLANDS: Unremarkable. KIDNEYS AND URETERS: No evidence of hydronephrosis or renal calculus. The ureters are unremarkable. STOMACH AND BOWEL: No evidence of bowel obstruction. There is a large stool burden throughout the col on. PERITONEUM: No evidence of pneumoperitoneum or free fluid. VASCULATURE: No evidence of aortic aneurysm. Sclerosis throughout the visualized arterial vasculature . MUSCULOSKELETAL: No acute osseous abnormalities, multilevel disc bulging most pronounced at L3-L4. LYMPH NODES: No gross evidence for lymphadenopathy. SOFT TISSUE/ABDOMINAL WALL: Unremarkable IMPRESSION: 1. No evidence for acute process. 2. Large stool burden throughout the visualized colon.
== END | disposition home or self-care (01) ==
LOC: RADCTMAIN 15:57
PROVIDERS: ATTEND Internal Medicine
DX: R10.13 Epigastric pain (principal)
CPT/HCPCS: 82565; 84520; 74160; 36415; Q9967 ×2

== ENCOUNTER → 2023-02-06 | Outpatient (CLI) | payer MEDICARE ==
--- NOTE | 2023-02-09 07:24 | MM ---
Reason for Exam: Screening (asymptomatic). Last mammogram was performed 2 year(s) and 6 month(s) ago. Patient History: Menarche at age 10. First Full-Term at age 22. Postmenopausal. Patient has history of breast feeding. Risk Values: Juliet 5 year model risk: 1.5%. NCI Lifetime model risk: 4.8%. Prior Study Comparison: 09/29/2017 Bilateral Screening Mammogram, [facility]. 10/18/2018 Bilateral Screening Mammogram, [facility]. 07/24/2020 Bilateral Screening Mammogram, [facility]. Tissue Density: The breast tissue is heterogeneously dense. This may lower the sensitivity of mammography. Findings: Analyzed By CAD. There are 2 benign-appearing round calcifications in the left breast redemonstrated. There is no suspicious group of microcalcifications or new suspicious mass in either breast. Overall Assessment: Benign, BI-RAD 2 Management: Screening Mammogram of both breasts in 1 year. . Patient should continue monthly self-breast exams. A clinical breast exam by your physician is recommended on an annual basis. This exam should not preclude additional follow-up of suspicious palpable abnormalities. Note on Juliet scores and lifetime risk: 1. A Juliet score greater than 3% is considered moderate risk. If this is the case, consider specialist referral to assess eligibility for a risk reducing agent. 2. If overall lifetime risk for the development of breast cancer is 20% or higher, the patient may qualify for future screening with alternating mammogram and breast MRI. Electronically signed and approved by: Osmin Bergeron M.D.
== END | disposition home or self-care (01) ==
LOC: RADMAMWWP 08:18
PROVIDERS: ATTEND Internal Medicine
DX: Z12.31 Encounter for screening mammogram for malignant neoplasm of breast (principal); Z78.0 Asymptomatic menopausal state
CPT/HCPCS: 77063; 77067

== ENCOUNTER 2023-03-24 02:15 | Emergency (ER) | payer MEDICARE ==
[2023-03-24 02:18] VITALS: RESP 18
--- NOTE | 2023-03-24 02:33 | ED ---
General Adult HPI - General Chief complaint: Extremity Injury, Lower Stated complaint: Fall Right knee injury Time Seen by Provider: 03/24/23 02:20 Source: patient, RN notes reviewed Mode of arrival: ambulatory Limitations: no limitations - History of Present Illness Initial comments: Patient is a 67 year old female presenting to the ER with a chief complaint of right knee pain. pt states she tripped going down a staircase and fell down the last 4 stairs. EMS was called to help get her up. she reports right knee pain (7/10) and swelling. she reports she twisted her ankle as well. she took some motrin for pain relief. pt states she has an appointment with orthopedics tomorrow. denies loss of consciousness, parenthesis or hitting any other body part. - Related Data Home Medications Medication Instructions Recorded Confirmed Ascorbic Acid [Vitamin C] 500 mg PO BID 12/24/16 04/17/17 ALPRAZolam [Xanax] 0.25 mg PO HS 04/15/17 04/17/17 Apixaban [Eliquis] 5 mg PO DAILY 04/15/17 04/15/17 Folic Acid 1 mg PO DAILY 04/15/17 04/17/17 Gabapentin [Neurontin] 100 mg PO BID 04/15/17 04/17/17 Melatonin 6 mg PO HS 04/15/17 04/17/17 Metoprolol Tartrate [Lopressor] 12.5 mg PO BID 04/15/17 04/17/17 Multivitamins, Thera [Multivitamin 1 tab PO DAILY 04/15/17 04/15/17 (formulary)] Thiamine [Vitamin B-1] 100 mg PO DAILY 04/15/17 04/17/17 Allergies Allergy/AdvReac Type Severity Reaction Status Date / Time Penicillins Allergy Unknown Verified 03/24/23 02:16 Childhood Review of Systems ROS Statement: Those systems with pertinent positive or pertinent negative responses have been documented in the HPI. ROS Other: All systems not noted in ROS Statement are negative. Past Medical History Past Medical History: Hypertension, Pneumonia Additional Past Medical History / Comment(s): dx 12/21/16 [facility] [place] hospitalized for over month ICU trach placed and removed, currently has PEG tube, tx for possible elizabeth. 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 at [facility] for rehab History of Any Multi-Drug Resistant Organisms: None Reported Past Surgical History: Tubal Ligation Additional Past Surgical History / Comment(s): PEG tube Past Anesthesia/Blood Transfusion Reactions: Postoperative Nausea & Vomiting (PONV) Past Psychological History: No Psychological Hx Reported Smoking Status: Never smoker Past Alcohol Use History: Rare Past Drug Use History: None Reported - Past Family History Father Family Medical History: Coronary Artery Disease (CAD), CVA/TIA Additional Family Medical History / Comment(s): pt states her father of stroke. Mother Additional Family Medical History / Comment(s): glaucoma. Brother(s) Family Medical History: AFIB General Exam Limitations: no limitations General appearance: alert, in no apparent distress Respiratory exam: Present: normal lung sounds bilaterally. Absent: respiratory distress, wheezes, rales, rhonchi, stridor Cardiovascular Exam: Present: regular rate, normal rhythm, normal heart sounds. Absent: systolic murmur, diastolic murmur, rubs, gallop, clicks Extremities exam: Present: other (right knee edema with limited ROM. right ankle edema. 2+ right dorsalis pedis pulse) Course Vital Signs 03/24/23 03/24/23 02:16 04:32 Temperature 97.9 F 96.4 F L Pulse Rate 88 81 Respiratory 18 18 Rate Blood Pressure 132/74 166/82 O2 Sat by Pulse 96 96 Oximetry Medical Decision Making - Medical Decision Making Was pt. sent in by a medical professional or institution (Dr. PA, EDGING MACHINE OPERATOR, urgent care, hospital, or custodial...) When possible be specific @ -No Did you speak to anyone other than the patient for history (EMS, parent, family, police, friend...)? What history was obtained from this source @ -No Did you review nursing and triage notes (agree or disagree)? Why? @ -I reviewed and agree with nursing and triage notes Were old charts reviewed (outside hosp., previous admission, EMS record, old EKG, old radiological studies, urgent care reports/EKG's, custodial records)? Report findings @ -No old charts were reviewed Differential Diagnosis (chest pain, altered mental status, abdominal pain women, abdominal pain men, vaginal bleeding, weakness, fever, dyspnea, syncope, headache, dizziness, GI bleed, back pain, seizure, CVA, palpatations, mental health, musculoskeletal)? @ -Fall, knee contusion, knee sprain, ankle sprain EKG interpreted by me (3pts min.). @ -None X-rays interpreted by me (1pt min.). @ -X-ray right ankle no acute fracture dislocation, x-ray right knee one view showing questionable fracture of the tibial plateau CT interpreted by me (1pt min.). @ -None done U/S interpreted by me (1pt. min.). @ -None done What testing was considered but not performed or refused? (CT, X-rays, U/S, labs)? Why? @ -None What meds were considered but not given or refused? Why? @ -None Did you discuss the management of the patient with other professionals (professionals i.e. , PA, EDGING MACHINE OPERATOR, lab, RT, psych nurse, social service agency director, supervisor asphalt paving, teacher, senior administrative services officer, wrapper caser)? Give summary @ -No Was smoking cessation discussed for >3mins.? @ -No Was critical care preformed (if so, how long)? @ -No Were there social determinants of health that impacted care today? How? (Homelessness, low income, unemployed, alcoholism, drug addiction, transportation, low edu. Level, literacy, decrease access to med. care, senior living, rehab)? @ -No Was there de-escalation of care discussed even if they declined (Discuss DNR or withdrawal of care, Hospice)? DNR status @ -No What co-morbidities impacted this encounter? (DM, HTN, Smoking, COPD, CAD, Cancer, CVA, ARF, Chemo, Hep., AIDS, mental health diagnosis, sleep apnea, morbid obesity)? @ -None Was patient admitted / discharged? Hospital course, mention meds given and route , prescriptions, significant lab abnormalities, going to OR and other pertinent info. @ -Discharge patient was placed in knee immobilizer patient did not have tenderness over the lateral portion patient does have an appointment with orthopedics no other than possibly tibial plateau injury. Patient discharged in stable condition. Undiagnosed new problem with uncertain prognosis? @ -No Drug Therapy requiring intensive monitoring for toxicity (Heparin, Nitro, Insulin, Cardizem)? @ -No Were any procedures done? @ -No Diagnosis/symptom? @ -Right knee pain Acute, or Chronic, or Acute on Chronic? @ -Acute Uncomplicated (without systemic symptoms) or Complicated (systemic symptoms)? @ -Uncomplicated Side effects of treatment? @ -No Exacerbation, Progression, or Severe Exacerbation? @ -No Poses a threat to life or bodily function? How? (Chest pain, [place], [place], pneumonia, PE, COPD, DKA, ARF, appy, cholecystitis, CVA, Diverticulitis, Homicidal, Suicidal, threat to staff... and all critical care pts) @ -No Disposition Clinical Impression: Right knee sprain, Right ankle pain Disposition: HOME SELF-CARE Condition: Stable Instructions (If sedation given, give patient instructions): Knee Sprain (ED) Additional Instructions: Please return to the Emergency Department if symptoms worsen or any other concerns. Is patient prescribed a controlled substance at d/c from ED?: No Referrals: Conor Castro MD [Primary Care Provider] - 1-2 days Eliazar Crenshaw DO [Doctor of Osteopathic Medicine] - 1-2 days Time of Disposition: 04:05
[2023-03-24 04:33] VITALS: BP 166/82; PULSE 81; TEMP 96.4
--- NOTE | 2023-03-24 06:49 | XR ---
EXAMINATION TYPE: XR ankle complete RT DATE OF EXAM: 03/24/2023 COMPARISON: NONE HISTORY: Pain TECHNIQUE: Frontal, lateral and oblique images of the right ankle are obtained. FINDINGS: There is no acute fracture/dislocation evident. The joint spaces appear within normal last its. Soft tissue swelling over the medial aspect of the ankle. Benign calcifications within the anter ior distal tibial soft tissues. IMPRESSION: 1. There is no acute fracture or dislocation seen. 2. Soft tissue swelling around the medial aspect of the ankle.
--- NOTE | 2023-03-24 06:51 | XR ---
EXAMINATION TYPE: XR knee complete RT DATE OF EXAM: 03/24/2023 COMPARISON: NONE HISTORY: Pain, fall TECHNIQUE: Frontal, lateral and oblique images of the right knee are obtained. FINDINGS: There is cortical irregularity along the lateral tibial plateau on the oblique view with s mall suprapatellar joint effusion with fluid fluid level.. The joint spaces appear within normal last its. Mild soft tissue swelling of the knee. IMPRESSION: Questionable lateral tibial plateau fracture with suprapatellar joint effusion. Further e valuation with CT is recommended.
== END 2023-03-24 04:44 | disposition home or self-care (01) ==
LOC: EC 02:15
DX: S83.91XA Sprain of unspecified site of right knee, initial encounter (principal); M25.571 Pain in right ankle and joints of right foot; I10 Essential (primary) hypertension; Z79.01 Long term (current) use of anticoagulants; Z79.899 Other long term (current) drug therapy; Z88.0 Allergy status to penicillin; W10.9XXA Fall (on) (from) unspecified stairs and steps, initial encounter
CPT/HCPCS: 73562; 73610; 99283; L1830

== ENCOUNTER → 2023-03-27 | Outpatient (CLI) | payer MEDICARE ==
--- NOTE | 2023-03-29 12:43 | CT ---
EXAMINATION TYPE: CT knee RT wo con CT DLP: 638.2 mGycm, Automated exposure control for dose reduction was used. DATE OF EXAM: 03/27/2023 4:54 PM COMPARISON: Extremity radiograph 03/24/2023 CLINICAL INDICATION:Female, 67 years old with history of RIGHT KNEE; M25.561; PHH, Fall, right knee s welling. TECHNIQUE: Axial images were obtained of the right knee . Additional coronal and sagittal reformatte d images and soft tissue and bone window were obtained for review. 3-D reconstruction was created on a separate workstation. Contrast used: None Oral contrast used: None FINDINGS: Acute tibial plateau fracture involving the lateral tibial plateau with 1-2 mm depression. No additional fractures are visualized. The fibula patella and femur are all intact. There is a small joint effusion. IMPRESSION: Acute lateral tibial plateau fracture with 1-2 mm depression. The fibula and patella and femur are in tact. Trace joint effusion.
== END | disposition home or self-care (01) ==
LOC: RADCTMAIN 16:22
PROVIDERS: ATTEND Orthopaedic Surgery
DX: S82.141A Displaced bicondylar fracture of right tibia, initial encounter for closed fracture (principal); M25.461 Effusion, right knee

== ENCOUNTER → 2023-12-18 | Outpatient (CLI) | payer MEDICARE ==
--- NOTE | 2023-12-18 17:43 | CA ---
Transthoracic Echo Report Name: Mary Rizvi Age: 68 Gender: F : 1955 Exam Date: 12/18/2023 15:00 Exam Location: [facility] Ht (in): 69 Wt (lb): 163 Ordering Physician: Conor Castro MD Attending/Referring Phys: Conor Castro MD [employer] Molding Machine Tender Ashlee James, RD Procedure CPT: Indications: I65.23 CAROTID STENOSIS I25.10 HEART DISEASE R55 Cardiac Hx: Technical Quality: Contrast 1: Total Dose (mL): Contrast 2: Total Dose (mL): MEASUREMENTS (Male / Female) Normal Values 2D ECHO LV Diastolic Diameter PLAX 4.8 cm 4.2 - 5.9 / 3.9 - 5.3 cm LV Systolic Diameter PLAX 3.6 cm IVS Diastolic Thickness 0.8 cm 0.6 - 1.0 / 0.6 - 0.9 cm LVPW Diastolic Thickness 1.0 cm 0.6 - 1.0 / 0.6 - 0.9 cm LV Relative Wall Thickness 0.4 RV Internal Dim ED PLAX 3.5 cm LA Systolic Diameter LX 3.3 cm 3.0 - 4.0 / 2.7 - 3.8 cm LA Volume 57.1 cm??? 18 - 58 / 22 - 52 cm??? LA Volume Index 30.0 cm???/m??? 16 - 28 cm???/m??? M-MODE Aortic Root Diameter MM 2.9 cm DOPPLER AV Peak Velocity 131.4 cm/s AV Peak Gradient 6.9 mmHg Mitral E Point Velocity 64.8 cm/s Mitral A Point Velocity 72.4 cm/s Mitral E to A Ratio 0.9 MV Deceleration Time 178.7 ms MV E' Velocity 6.2 cm/s Mitral E to MV E' Ratio 10.4 FINDINGS Left Ventricle Left ventricular ejection fraction is estimated at 60-65 %. Left ventricular cavity size normal. Left ventricular wall thickness normal. Normal left ventricular wall motion. Right Ventricle Mild right ventricular dilatation. Unable to estimate the right ventricular systolic pressure. Right Atrium Normal right atrial size. Left Atrium Mildly increased left atrial volume. Mitral Valve Structurally normal mitral valve. No mitral stenosis, regurgitation or prolapse. Aortic Valve Trileaflet aortic valve. No aortic valve stenosis or regurgitation. Tricuspid Valve Structurally normal tricuspid valve. No tricuspid stenosis, regurgitation or prolapse. Pulmonic Valve Structurally normal pulmonic valve. Mild pulmonic regurgitation. Pericardium No pericardial effusion. Aorta Normal size aortic root and proximal ascending aorta. CONCLUSIONS Normal LV function Previewed by: Dr. Mike Roy MD (Electronically Signed) Final Date: 18 December 2023 17:42
--- NOTE | 2023-12-20 14:23 | US ---
EXAMINATION TYPE: US carotid duplex BILAT DATE OF EXAM: 12/18/2023 COMPARISON: US 2021 CLINICAL INDICATION: Female, 68 years old with history of I65.23 CAROTID STENOSIS I25.10 HEART DISEAS E R55; TECHNIQUE: Carotid duplex ultrasound examination. Indirect Doppler criteria was utilized. FINDINGS: EXAM MEASUREMENTS: RIGHT: Peak Systolic Velocity (PSV) cm/sec ----- Right CCA: 66.3 ----- Right ICA: 86.0 ----- Right ECA: 63.3 ICA/CCA ratio: 1.3 RIGHT: End Diastole cm/sec ----- Right CCA: 18.8 ----- Right ICA: 27.4 ----- Right ECA: 10.9 LEFT: Peak Systolic Velocity (PSV) cm/sec ----- Left CCA: 56.7 ----- Left ICA: 64.4 ----- Left ECA: 7.5 ICA/CCA ratio: 1.1 LEFT: End Diastole cm/sec ----- Left CCA: 13.8 ----- Left ICA: 23.2 ----- Left ECA: 7.5 VERTEBRALS (direction of flow): Right Vertebral: Antegrade Left Vertebral: Antegrade Rhythm: Normal Hook And Eye Machine Operator notes: No significant stenosis IMPRESSION: No hemodynamically significant internal carotid artery stenosis on either side. Criteria for Assigning % of Stenosis / Diameter reduction (Estimation based on the indirect measurements of the internal carotid artery velocities (ICA PSV). 1. Normal (no stenosis)=ICA PSV < 125 cm/s: ratio < 2.0: ICA EDV<40 cm/s. 2. Less than 50% stenosis=ICA PSV < 125 cm/s: ratio < 2.0: ICA EDV<40 cm/s. 3. 50 to 69% stenosis=ICA PSV of 125 to 230 cm/s: ration 2.0 ? 4.0: ICA EDV 40-100 cm/s. 4. Greater than 70% stenosis to near occlusion= ICA PSV > 230 cm/s: ratio > 4.0: ICA EDV > 100 cm/s. 5. Near occlusion= ICA PSV velocities may be low or undetectable: variable ratio and ICA EDV. 6. Total occlusion=unable to detect flow.
== END | disposition home or self-care (01) ==
LOC: RADECHMAIN 14:47
PROVIDERS: ATTEND Internal Medicine
DX: I65.23 Occlusion and stenosis of bilateral carotid arteries (principal); I25.10 Atherosclerotic heart disease of native coronary artery without angina pectoris; R55 Syncope and collapse
CPT/HCPCS: 93306; 93880

== ENCOUNTER → 2023-12-21 | Outpatient (CLI) | payer MEDICARE ==
--- NOTE | 2024-01-22 22:36 | EM ---
EVENT MONITOR STUDY: This is a 30-day event monitor. FINDINGS: Several tracings were reviewed. Most of these depicted sinus rhythm and sinus tachycardia. There is no evidence of any significant ventricular or supraventricular arrhythmias. There is no evidence of any significant bradyarrhythmia. Most of these actually were patient triggered and they were all correlating with sinus rhythm or sinus tachycardia. FINAL IMPRESSION: Predominantly sinus or sinus tachycardia. Patient trigger correlates to sinus rhythm or sinus tachycardia. No evidence of any ventricular or supraventricular arrhythmias or of any bradyarrhythmia. MMODL / IJN: [id number] /
== END | disposition home or self-care (01) ==
LOC: RADECHMAIN 13:06
PROVIDERS: ATTEND Internal Medicine
DX: I25.10 Atherosclerotic heart disease of native coronary artery without angina pectoris (principal); R55 Syncope and collapse
CPT/HCPCS: 93270

== ENCOUNTER → 2024-02-22 | Outpatient (CLI) | payer MEDICARE ==
--- NOTE | 2024-02-22 18:12 | BD ---
EXAMINATION TYPE: Axial Bone Density DATE OF EXAM: 02/22/2024 CLINICAL HISTORY: 68 years old Female. ICD-10 CODE: M85.80 OSTEOPENIA Height: 67.2 Weight: 163lb FRAX RISK QUESTIONS: Family History (Parent hip fracture): yes History of Fracture in Adulthood: yes Secondary Osteoporosis: RISK FACTORS HISTORY OF: MEDICATIONS: EXAM MEASUREMENTS: Bone mineral densitometry was performed using the [employer] System. Bone mineral density as measured about the Lumbar spine is: ----- L1-L4(G/cm2): 1.115 T Score Values are as follows: ----- L1: -1.0 ----- L2: -1.4 ----- L3: -0.2 ----- L4: 0.0 ----- L1-L4: -0.5 Z Score Values are as follows: ----- L1: 0.4 ----- L2: 0.0 ----- L3: 1.2 ----- L4: 1.4 ----- L1-L4: 0.8 Bone mineral density has: Decreased -1.1% since study of: 07-24-20 Bone mineral density about the R hip (g/cm2): 0.981 Bone mineral density about the L hip (g/cm2): 0.972 T Score values are as follows: -----R Neck: -0.6 -----L Neck: -1.0 -----R Total: -0.2 -----L Total: -0.3 Z Score values are as follows: -----R Neck: 0.9 -----L Neck: 0.5 -----R Total: 1.1 -----L Total: 1.0 Bone mineral density has: Increased 0.5% since study of: 07-24-20 FRAX%s: The graph provided illustrates a 21.9% chance for a major osteoporotic fx and a 3.5% chance f or the hips probability for fx in 10 years time. IMPRESSION: Normal (Values between +1 and -1 indicate normal bone mass). Note that measurements border on osteope dillon at the left hip. Consider repeating this study in 5 years or sooner if there is some new clinical indication. NOTE: T-SCORE=SD OF THE YOUNG ADULT MEAN.
--- NOTE | 2024-02-22 19:30 | MM ---
Reason for Exam: Screening (asymptomatic). Last mammogram was performed 1 year(s) and 1 month(s) ago. Patient History: Menarche at age 10. First Full-Term at age 22. Postmenopausal. Patient has history of breast feeding. Risk Values: Juliet 5 year model risk: 1.5%. NCI Lifetime model risk: 4.5%. Prior Study Comparison: 10/18/2018 Bilateral Screening Mammogram, [facility]. 07/24/2020 Bilateral Screening Mammogram, [facility]. 02/06/2023 Bilateral MG screening mammo w CAD, [facility]. Tissue Density: The breasts are heterogeneously dense, which may obscure small masses. Findings: Analyzed By CAD. There is no suspicious group of microcalcifications or new suspicious mass in either breast. Overall Assessment: Negative, BI-RAD 1 Management: Screening Mammogram of both breasts in 1 year. . Patient should continue monthly self-breast exams. A clinical breast exam by your physician is recommended on an annual basis. This exam should not preclude additional follow-up of suspicious palpable abnormalities. Note on Juliet scores and lifetime risk: 1. A Juliet score greater than 3% is considered moderate risk. If this is the case, consider specialist referral to assess eligibility for a risk reducing agent. 2. If overall lifetime risk for the development of breast cancer is 20% or higher, the patient may qualify for future screening with alternating mammogram and breast MRI. Electronically signed and approved by: Kayy Crespo M.D. Radiologist
== END | disposition home or self-care (01) ==
LOC: RADMAMWWP 10:52
PROVIDERS: ATTEND Internal Medicine
DX: Z12.31 Encounter for screening mammogram for malignant neoplasm of breast (principal); M85.88 Other specified disorders of bone density and structure, other site; Q78.2 Osteopetrosis; Z78.0 Asymptomatic menopausal state
CPT/HCPCS: 77063; 77067; 77080

== ENCOUNTER → 2024-06-15 | Outpatient (CLI) | payer MEDICARE ==
--- NOTE | 2024-06-15 07:39 | US ---
EXAMINATION TYPE: US liver DATE OF EXAM: 06/15/2024 COMPARISON: Multiple, most relevant CT 07/11/2022 CLINICAL INDICATION: Female, 68 years old with history of K76.89 OTHER SPECIFIED DISEASES OF LIVER; H x HTN; Patient denies any other signs, symptoms, or relevant history TECHNIQUE: Multiple sonographic images of the right upper quadrant are obtained. FINDINGS: EXAM MEASUREMENTS: Liver Length: 16.3 cm Gallbladder Wall: 0.2 cm CBD: 0.2 cm Right Kidney: 12.1 x 3.9 x 5.0 cm BOARD FILLER NOTES: Pancreas: wnl Liver: Simple cyst redemonstrated = 2.5 x 2.7 x 3.0 cm Gallbladder: wnl Evidence for sonographic Smith's sign: No CBD: wnl Right Kidney: wnl IMPRESSION: 1. No evidence for acute process. 2. Simple appearing liver cyst.
== END | disposition home or self-care (01) ==
LOC: RADUSWWP 07:05
PROVIDERS: ATTEND Internal Medicine
DX: K76.89 Other specified diseases of liver
CPT/HCPCS: 76705

== ENCOUNTER → 2025-02-27 | Outpatient (CLI) | payer MEDICARE ==
--- NOTE | 2025-02-27 10:40 | MM ---
Reason for Exam: Screening (asymptomatic). Last screening mammogram was performed 12 month(s) ago. Patient History: Menarche at age 10. First Full-Term at age 22. Postmenopausal. Patient has history of breast feeding. Risk Values: Juliet 5 year model risk: 1.6%. NCI Lifetime model risk: 4.3%. Prior Study Comparison: 07/24/2020 Bilateral Screening Mammogram, [facility]. 02/06/2023 Bilateral MG screening mammo w CAD, [facility]. 02/22/2024 Bilateral MG 3D screening mammo w/cad, [facility]. Tissue Density: There are scattered areas of fibroglandular density. Findings: Analyzed By CAD. Right breast: There is no suspicious group of microcalcifications or new suspicious mass. Left breast: There is no suspicious group of microcalcifications or new suspicious mass. Overall Assessment: Negative, BI-RAD 1 Management: Screening Mammogram of both breasts in [address] [facility] will attempt to contact patient to return for supplemental views and ultrasound if indicated. Patient should continue monthly self-breast exams. A clinical breast exam by your physician is recommended on an annual basis. This exam should not preclude additional follow-up of suspicious palpable abnormalities. Note on Juliet scores and lifetime risk: 1. A Juliet score greater than 3% is considered moderate risk. If this is the case, consider specialist referral to assess eligibility for a risk reducing agent. 2. If overall lifetime risk for the development of breast cancer is 20% or higher, the patient may qualify for future screening with alternating mammogram and breast MRI. [facility], , 02/27/2025 10:38 AM. Electronically signed and approved by: Chapo Mora DO
== END | disposition home or self-care (01) ==
LOC: RADMAMWWP 09:51
PROVIDERS: ATTEND Internal Medicine
DX: Z12.31 Encounter for screening mammogram for malignant neoplasm of breast (principal); R92.323 Mammographic fibroglandular density, bilateral breasts; Z78.0 Asymptomatic menopausal state
CPT/HCPCS: 77063; 77067